=== PATIENT | male | born 1955 | race Caucasian/White ===

== ENCOUNTER 2019-02-12 09:01 | Outpatient (CLI) | payer BC ==
--- NOTE | 2019-02-12 09:47 | ULT ---
Renal sonogram HISTORY: Benign prostatic hypertrophy. Urinary tract infection. FINDINGS: Right kidney measures up to 11.5 cm in length. An exophytic cyst along the lateral cortex n ear the inferior pole measures up to 1.1 cm greatest diameter. No solid mass or hydronephrosis. Left kidney is 11.1 cm with a normal appearance. Urinary bladder is well distended without focal abnormality. Post void images of the bladder shows significant residual urine. Postvoid volume calculated at 471 c c. IMPRESSION: Tiny right renal cyst. No evidence of upper urinary tract obstruction. Large postvoid urinary bladder residual.
== END 2019-02-12 09:02 | disposition home or self-care (01) ==
LOC: SCSULT 09:01
PROVIDERS: ATTEND Urology
DX: N40.1 Benign prostatic hyperplasia with lower urinary tract symptoms (principal); N28.1 Cyst of kidney, acquired
CPT/HCPCS: 76770

== ENCOUNTER 2019-04-15 07:55 | Outpatient (CLI) | payer BC ==
[2019-04-15 11:36] LABS: Hemoglobin 14.7 g/dL (14.0-18.0); Mean Corpuscular Hemoglobin 32.6 pg (27.0-31.0); Mean Corpuscular Volume 98.9 fL (78.0-98.0); Mean Platelet Volume 8.9 fL (7.4-10.4); Platelet Count 304 thou/uL (130-400); RBC Distribution Width 12.5 % (11.5-14.5); White Blood Cell (WBC) Count 6.9 thou/uL (4.8-10.8)
[2019-04-15 11:45] LABS: Bilirubin Negative (Negative); Blood, Urine Trace (Negative); Clarity Turbid (Clear); Glucose, Urine (Dipstick) Normal (Negative); Leukocyte 250 Leu/uL (Negative); Nitrite Negative (Negative); Protein, Urine (Dipstick) 10 mg/dL (Neg-Trace); Squamous Epithelial None Seen HPF (0-3); Urobilinogen Normal mg/dL (Less than 2)
[2019-04-15 11:57] LABS: Bacteria/HPF 3+ HPF (None Seen)
[2019-04-15 12:02] LABS: Anion Gap 12 mmol/L (10-20); BUN (Urea Nitrogen) 14 mg/dL (8.4-25.7); Calc. Creatinine Clearance 0 mL/min (70-130); Calcium 9.4 mg/dL (7.8-10.44); Carbon Dioxide 26 mmol/L (23-31); Chloride 104 mmol/L (98-107); Estimated GFR-MDRD 89; Glucose 67 mg/dL (80-115); Potassium 4.1 mmol/L (3.5-5.1); Sodium 138 mmol/L (136-145)
== END 2019-04-15 07:56 | disposition home or self-care (01) ==
LOC: LABBT 07:55
PROVIDERS: ATTEND Urology
DX: Z01.818 Encounter for other preprocedural examination (principal); N40.0 Benign prostatic hyperplasia without lower urinary tract symptoms
CPT/HCPCS: 80048; 81001; 85027; 85610; 85730; 87086; 93005; 93010

== ENCOUNTER 2019-04-24 07:16 | Day surgery (SDC) | payer BC ==
[2019-04-15 10:04] VITALS: BMI 29.5
[2019-04-24] MEDS ORDERED: Levofloxacin 500 mg/D5W 100 ml Premix Bag ONE (08:28)
[2019-04-24] MEDS ORDERED: PROPOFOL 60 ML ONE (09:20)
[2019-04-24] MEDS ORDERED: Fentanyl 100 MCG/2 ML VIAL ONE (09:20)
[2019-04-24] MEDS ORDERED: Phenazopyridine HCl 97.5 MG TABLET ONE (11:55)
--- NOTE | 2019-04-24 13:51 | OP ---
DATE OF PROCEDURE: 04/24/2019 SERVICE: Urology. PREOPERATIVE DIAGNOSIS: Benign prostatic hypertrophy. POSTOPERATIVE DIAGNOSIS: Benign prostatic hypertrophy. PROCEDURE PERFORMED: UroLift with 5 implants, one was removed. INDICATIONS FOR PROCEDURE: Mr. Santiago is a 63-year-old white male with BPH and urinary symptoms. He is currently taking Flomax, but did not have complete relief of symptoms and does not like the sexual side effects. He elected to undergo a UroLift procedure to get off medication and possibly urinate better. Risks and benefits of the procedure were discussed and he has agreed to proceed forward. DESCRIPTION OF PROCEDURE: After identification of armband and verification of consent, the patient was brought back to the operating room, where he underwent total intravenous anesthesia. He was then placed in a dorsal lithotomy position and prepped and draped in the usual sterile fashion. After appropriate time-out, a lubricated 21-[place] rigid cystoscope sheath was introduced per urethra into the bladder with visual obturator guidance. The prostate was obstructive as previously had been described on outpatient cystoscopy. The visual obturator then switched out for the UroLift device and the first implant was placed in the patient's left proximal prostate by laterally compressing the lobe and bring the device back approximately 1.5 cm away from the bladder neck. Once the compression was achieved by 20-degree lateral compression and anterior elevation, the trigger was released and the blue trigger fired for the Nitinol needle, the tension and capsular tab were set using the mohr trigger. The UroLift was then advanced forward until the white line was in the keyhole and then the urethral end-piece deployed using the mohr release tab on the back. This resulted in nice compression of the left lateral proximal lobe. The same procedure was then repeated on the right. However, there did appear to be a partial pull-through, resulting in a loose urethral end piece. As a result, we elected to remove this implant, so the UroLift device was removed and a 22-[place] rigid cystoscope was introduced per urethra with a flexible grasper. The grasper was used to grasp the urethral end piece and removed it and was discarded outside the patient's body. The visual obturator and 21-[place] rigid cystoscope for the UroLift device was then inserted back through the urethra into the patient's bladder and the visual obturator switched out back for the UroLift. Another attempt at the right proximal prostate was done in the same fashion as on the left, but this time there was a good deployment of the catheter end-piece with good tension and compression of the proximal prostate on the right. Two additional implants were placed in the patient's distal prostate on the left and right, which resulted in wide opening of the prostatic channel with no evidence of obstruction. This looked very good and I felt that four implants were sufficient with the 5th one being discarded. The bladder was left full and the UroLift device removed with cystoscope. An 18-[place] Peng catheter was placed in the patient's bladder with 10 mL of sterile water in the balloon. The patient was then taken out of lithotomy, awakened, and taken to PACU for recovery in stable condition. COMPLICATIONS: None. ESTIMATED BLOOD LOSS: Minimal. RETAINED TUBES AND DRAINS: An 18-[place] Peng catheter to gravity drainage. SPECIMENS: None. IMPLANTS USED: Five. DISPOSITION: The patient will undergo a void trial in Day Stay. He will be discharged afterwards with followup on an outpatient basis. Job ID: [id number]
== END 2019-04-24 12:40 | disposition home or self-care (01) ==
LOC: SDC 07:16
PROVIDERS: ATTEND Urology
PROC: 0T7D8DZ Dilation of Urethra with Intraluminal Device, Via Natural or Artificial Opening Endoscopic (ICD-10-PCS; principal; 2019-04-24)
DX: N40.1 Benign prostatic hyperplasia with lower urinary tract symptoms (principal); E29.1 Testicular hypofunction; Z79.890 Hormone replacement therapy; Z79.899 Other long term (current) drug therapy; Z88.5 Allergy status to narcotic agent; Z91.018 Allergy to other foods
CPT/HCPCS: C1889; J1956; J2704; J3010

== ENCOUNTER 2023-11-28 06:34 | Day surgery (SDC) | payer MEDICARE ==
[2023-11-15 16:17] VITALS: BMI 29.5
[2023-11-28] MEDS ORDERED: LevoFLOXacin D5W 500 mg (100 mL) BAG ONE (10:04)
[2023-11-28] MEDS ORDERED: Lidocaine 1% PF 5 ML VIAL ONE (10:59)
[2023-11-28] MEDS ORDERED: Midazolam HCl 2 mg/2 ml Vial ONE (10:59)
[2023-11-28] MEDS ORDERED: PROPOFOL 20 ML ONE (10:59)
[2023-11-28] MEDS ORDERED: fentaNYL PF 100 MCG/2 ML SYRINGE ONE (10:59)
[2023-11-28] MEDS ORDERED: PHENYLEPHRINE-NS 100 MCG/ML 10 ML SYRINGE ONE (10:59)
[2023-11-28] MEDS ORDERED: Rocuronium Bromide 10 MG/ML (10ML VIAL) ONE (10:59)
[2023-11-28] MEDS ORDERED: Ondansetron PF 4 MG/2 ML Vial ONE (11:33)
[2023-11-28] MEDS ORDERED: Dexmedetomidine 200 MCG/2 ML VIAL ONE (11:33)
[2023-11-28] MEDS ORDERED: Dexamethasone 4 mg/ml Vial ONE (11:33)
[2023-11-28] MEDS ORDERED: ePHEDrine Sulfate 50 MG/10 ML VIAL ONE (11:56)
[2023-11-28] MEDS ORDERED: Sevoflurane 250 ML INH ANEST BOTTLE ONE (12:16)
[2023-11-28] MEDS ORDERED: SUGAMMADEX SODIUM 200 MG/2 ML VIAL ONE (12:18)
[2023-11-28] MEDS ORDERED: Phenazopyridine HCl 100 MG TAB ONE (13:03)
[2023-11-28] MEDS ORDERED: Oxybutynin 5 MG TAB ONE (13:03)
== END 2023-11-28 15:45 | disposition home or self-care (01) ==
LOC: SDC 06:34
PROVIDERS: ATTEND Urology
PROC: 0VT08ZZ Resection of Prostate, Via Natural or Artificial Opening Endoscopic (ICD-10-PCS; principal; 2023-11-28)
DX: N40.1 Benign prostatic hyperplasia with lower urinary tract symptoms (principal); E78.00 Pure hypercholesterolemia, unspecified; R33.9 Retention of urine, unspecified; G40.209 Localization-related (focal) (partial) symptomatic epilepsy and epileptic syndromes with complex partial seizures, not intractable, without status epilepticus; R35.1 Nocturia; K90.9 Intestinal malabsorption, unspecified; E78.5 Hyperlipidemia, unspecified; K90.0 Celiac disease; G40.909 Epilepsy, unspecified, not intractable, without status epilepticus; Z98.890 Other specified postprocedural states; Z96.652 Presence of left artificial knee joint; Z88.0 Allergy status to penicillin; Z88.5 Allergy status to narcotic agent; Z79.899 Other long term (current) drug therapy
CPT/HCPCS: 52601; A4333; J1100; J1956; J2250; J2405; J2704